=== PATIENT | male | born 1945 | race Caucasian/White ===

== ENCOUNTER 2017-04-25 13:21 | Emergency (ER) | payer OTHER ==
[~2017-04-25] VITALS: Ht 188 cm; Wt 165.6 kg
--- NOTE | ~2017-04-25 | CR106 ---
[facility] A Service of [facility] & [facility] RADIOLOGY TEXT RESULTS PATIENT: ALY RUELAS LOCATION: [facility] : 47 UNIT #: [id number] AGE: [address]: Bev Rivera MD SEX: M ORDER DR: [id number] [facility] [address] [place], [place] [address] [id number] E MR#: [id number] Acc #: [id number] NAME: ALY RUELAS : 1945 SEX: M STUDY DATE/TIME: 04/25/2017 15:28 UNIT: [facility] ROOM: STUDY DESCRIPTION: CR Femur 2 Views Lt Attending Physician: Bev Rivera M.D. Ordering Physician: Bev Rivera M.D. Primary Care Physician: [facility], [facility]. MEDICAL IMAGING REPORT This report is preliminary unless electronic signature is present EXAM Left femur. HISTORY Left femur pain after fall. FINDINGS AP and lateral views of the left femur were obtained. There is no fracture visible. There is anterior soft tissue swelling of the knee. IMPRESSION Anterior soft tissue swelling of the knee; otherwise normal. Dictated by... Fer Al M.D. THIS IS AN ELECTRONICALLY VERIFIED REPORT Fer Al M.D. at 04/26/2017 7:08 AM ECHO/dave TD: 04/25/2017 22:44 JOB #: [id number] MEDICAL IMAGING REPORT Page 1 of 1 COPY
--- NOTE | ~2017-04-25 | CR172 ---
[facility] A Service of [facility] & [facility] RADIOLOGY TEXT RESULTS PATIENT: ALY RUELAS LOCATION: [facility] : 47 UNIT #: [id number] AGE: [address]: Bev Rivera MD SEX: M ORDER DR: [id number] [facility] [address] [place], [place] [address] [id number] E MR#: [id number] Acc #: [id number] NAME: ALY RUELAS : 1945 SEX: M STUDY DATE/TIME: 04/25/2017 15:12 UNIT: [facility] ROOM: STUDY DESCRIPTION: CR Knee 3 Views Lt Attending Physician: Bev Rivera M.D. Ordering Physician: Bev Rivera M.D. Primary Care Physician: [facility] MEDICAL IMAGING REPORT This report is preliminary unless electronic signature is present EXAM Left knee INDICATION Left knee pain after fall today. FINDINGS 3-views of the left knee were obtained including AP, lateral and sunrise views. There is prominent anterior soft tissue swelling. There is no fracture. There is no significant joint space narrowing. IMPRESSION There seems to be anterior soft tissue swelling but there is no fracture identified. There are no significant degenerative changes. Dictated by... Fer Al M.D. THIS IS AN ELECTRONICALLY VERIFIED REPORT Fer Al M.D. at 04/26/2017 7:08 AM ECHO/angle TD: 04/25/2017 22:48 JOB #: [id number] MEDICAL IMAGING REPORT Page 1 of 1 COPY
--- NOTE | ~2017-04-25 | CR252 ---
[facility] A Service of [facility] & [facility] RADIOLOGY TEXT RESULTS PATIENT: ALY RUELAS LOCATION: [facility] : 47 UNIT #: [id number] AGE: [address]: Bev Rivera MD SEX: M ORDER DR: [id number] [facility] [address] [place], [place] [address] [id number] E MR#: [id number] Acc #: [id number] NAME: ALY RUELAS : 1945 SEX: M STUDY DATE/TIME: 04/25/2017 15:16 UNIT: [facility] ROOM: STUDY DESCRIPTION: CR Tibia and Fibula 2 Views Lt Attending Physician: Bev Rivera M.D. Ordering Physician: Bev Rivera M.D. Primary Care Physician: [facility], [facility]. MEDICAL IMAGING REPORT This report is preliminary unless electronic signature is present EXAM Left tibia and fibula INDICATIONS Pain after falling on concrete today. FINDINGS AP and lateral views of the tibia and fibula were obtained. No fractures are identified. The bones are normal. There is no foreign body. IMPRESSION No fractures visible. There may be some anterior soft tissue swelling. Dictated by... Fer Al M.D. THIS IS AN ELECTRONICALLY VERIFIED REPORT Fer Al M.D. at 04/26/2017 7:08 AM ECHO/cristin TD: 04/25/2017 22:52 JOB #: [id number] MEDICAL IMAGING REPORT Page 1 of 1 COPY
[~2017-04-25 13:21] MED LIST: ACETAMINOPHEN PO; ALBUTEROL MININEB NEB; ALPRAZOLAM PO; AMLODIPINE BESY10 MG PO; BUMEX2 MG PO; COMBIVENT MININEB; COMBIVENT MININEB IH; CORDARONE200 M1 PO; FLOMAX0.4 M1 PO; FOSINOPRIL PO; FOSINOPRIL SODI20 MG PO; FUROSEMIDE40 MG PO; GABAPENTIN400 M2 PO; GABAPENTIN400 MG PO; GABAPENTIN600 MG PO; GLUCOPHAGE XR500 MG PO; GLUCOTROL PO; GLUCOTROL XL10 MG PO; GLUCOTROL10 MG PO; KCL PO; KLOR-CON PO; LANTUS100 U/M1 IM; LASIX PO; LEVAQUIN750 MG PO; LEXAPRO PO; METFORMIN HCL500 M1 PO; METOPROLOL TAR25 MG PO; NORVASC PO; NORVASC10 MG PO; PANTOPRAZOLE SO40 MG PO; PERCOCET 5-3251 TAB PO; PRAVACHOL20 MG PO; PRAVASTATIN SOD20 MG PO; PREDNISONE10 MG PO; PROAIR HFA8.5 GM IH; SPIRIVA18 MCG INH; SYMBICORT 16010.2 GM; SYMBICORT 16010.2 GM IH; SYMBICORT80 INH; XARELTO20 MG PO; XOPENEX1.25 MG/3 IH; ZITHROMAX PO
[2017-04-25 15:09] LABS: BASOPHIL% 0.4 % (0-2.5); EOSINOPHIL% 0.5 % (0.0-7.0); HEMOGLOBIN 12.4 gm/dL (13.0-16.0); LYMPHOCYTE# 0.7 X10e3 (1.0-3.5); MEAN CELL VOLUME 89.1 FL (83-96); MEAN CORPUSCULAR HEMOGLOBIN 29.9 PG (28-34); MEAN CORPUSCULAR HGB CONC 33.5 g/dL (30-36); MEAN PLATELET VOLUME 7.4 FL (6.5-11.5); MONOCYTE# 0.9 X10e3 (0-1.0); MONOCYTE% 10.9 % (3.0-12.0); NEUTROPHIL# 6.9 X10e3 (1.5-7.1); NEUTROPHIL% 80.2 % (40-75); PLATELET COUNT 222 X10e3 (140-420); RED BLOOD COUNT 4.15 X10e (3.90-5.60); RED CELL DISTRIBUTION WIDTH 14.2 % (11.0-15.5); WHITE BLOOD COUNT 8.6 X10e3 (4.0-10.5)
[2017-04-25 15:11] LABS: DIFF IND NO
[2017-04-25 15:27] LABS: INR 1.3; PARTIAL THROMBOPLASTIN TIME 35.5 SECONDS (23.5-31.3)
[2017-04-25 16:01] LABS: ALBUMIN SERUM 3.6 g/dL (3.5-5.0); BILIRUBIN, DIRECT 0.2 mg/dL (0.0-0.2); BILIRUBIN,INDIRECT 0.7 mg/dL (0.0-0.9); BILIRUBIN,TOTAL 0.9 mg/dL (0.2-2.0); BUN/CREATININE RATIO 19.09; CALCIUM SERUM 8.6 mg/dL (8.4-10.2); CREATININE SERUM 1.1 mg/dL (0.6-1.4); GLOM FILT RATE Estimated 68.1 mL/min (>60); POTASSIUM 4.4 mmol/L (3.5-5.1); PROTEIN TOTAL SERUM 6.5 g/dL (6.0-8.3)
== END 2017-04-25 19:19 | disposition home or self-care (01) ==
LOC: CED 13:21
PROVIDERS: Emergency Medicine
DX: S80.02XA Contusion of left knee, initial encounter (principal); I11.0 Hypertensive heart disease with heart failure; I50.9 Heart failure, unspecified; I48.91 Unspecified atrial fibrillation; E78.5 Hyperlipidemia, unspecified; E11.9 Type 2 diabetes mellitus without complications; I73.9 Peripheral vascular disease, unspecified; Z89.422 Acquired absence of other left toe(s); Z89.511 Acquired absence of right leg below knee; Z88.2 Allergy status to sulfonamides; Z79.899 Other long term (current) drug therapy; Z79.84 Long term (current) use of oral hypoglycemic drugs; W18.30XA Fall on same level, unspecified, initial encounter; Y92.009 Unspecified place in unspecified non-institutional (private) residence as the place of occurrence of the external cause
CPT/HCPCS: 36415; 73552; 73562; 73590; 80048; 80076; 83605; 85025; 85610; 85730; 99284

== ENCOUNTER 2017-05-03 10:54 | Inpatient (IN) | payer OTHER ==
[~2017-05-03] VITALS: Ht 188 cm; Wt 157.4 kg
--- NOTE | ~2017-05-03 | CO ---
Unit #: [id number] #: [id number] Patient: ALY LEBRON [id number] [address] [address] [id number] I MR#: [id number] NAME: ALY LEBRON ROOM: 561 Age: 71 Sex: M Admission Date: 05/03/2017 : 1945 Attending Physician: So Judd M.D. Primary Care Physician: [facility]. Requesting Physician: So Judd M.D. Consultation Date: 05/04/2017 CONSULTATION REPORT REASON FOR CONSULTATION Lower extremity cellulitis. HISTORY OF PRESENT ILLNESS Mr. Lebron is a 71-year-old gentleman with a past medical history significant for AFib, chronic anticoagulation with Xarelto, hypertension, hyperlipidemia, right bundle branch block, diabetes, COPD, chronic respiratory failure, obstructive sleep apnea, chronic lymphedema who presented in the emergency room with continue complaints of left lower leg swelling and blisters. He stated that had fallen this April on 04/24/2017 and was seen in the emergency room. Imaging of left knee x-ray and fibular x-ray were all negative. He was discharged on p.o. Keflex. He has been taking the Keflex but felt like his erythema and blisters were developing even more on his left lower extremity for which he was admitted. He complains of some generalized tenderness. He denies any fevers, chills, difficulty in breathing, cough, pain, vomiting or diarrhea. He has been started on vancomycin and Zosyn. He had an ultrasound of his lower extremity, which was negative for any deep venous thrombosis. He is currently afebrile with no leukocytosis and we are being consulted for further antibiotic recommendations. PAST MEDICAL HISTORY 1. Previous admission here at [facility] for chronic respiratory failure and COPD. 2. Chronic respiratory failure. 3. Obstructive sleep apnea. He is on the CPAP. 4. Atrial fibrillation. 5. Hypertension. 6. Hyperlipidemia. 7. Right bundle branch block. 8. Diabetes. 9. Chronic lymphedema. 10. Status post right BKA. PAST SURGICAL HISTORY 1. Cardiac catheterization. 2. EGD. 3. Toe amputation. 4. Right below the knee amputation. 5. Hernia repair. SOCIAL HISTORY The patient is a former smoker. Walks with a cane and denies any alcohol abuse or illicit drug use. Unit #: [id number] #: [id number] Patient: ALY LEBRON FAMILY HISTORY Noncontributory. ALLERGIES Sulfa. CURRENT MEDICATIONS REVIEWED Patient is currently on Zosyn and vancomycin. REVIEW OF SYSTEMS All negative except for those stated in the HPI. DIAGNOSTIC STUDIES IMAGING STUDIES: Negative exam of left lower extremity DVT, negative pending KAREEM. LABORATORY DATA: Glucose is 155, BUN 19, creatinine 1.3, sodium 139, potassium 4.5. Hematology - white count is 8.9, hemoglobin 11.3, white count is 10.5, hemoglobin 11.3, platelets are 371. Blood culture are no growth today at 24 hours. ASSESSMENT 71-year-old gentleman with history of diabetes. Returns for reoccurring left lower extremity cellulitis and has failed outpatient p.o. antibiotic therapy. At this point will continue Zosyn and will check vancomycin to Zyvox for better skin penetration. Will followup on KAREEM. Patient may need vascular consult depending on KAREEM results. Wound care has been consulted. Further recommendations will come Dr. Kirk. He will see patient later today. Dictated by... Tracee Boland APRN for Essie Marie/nitin TD: 05/05/2017 10:03 JOB #: [id number] CONSULTATION REPORT Page 1 of 1 X X CONSULTATION REPORT
--- NOTE | ~2017-05-03 | US85 ---
[facility] A Service of [facility] & [facility] RADIOLOGY TEXT RESULTS PATIENT: ALY RUELAS LOCATION: [place] [address] : [birth year] UNIT #: [id number] AGE: [address]: Kalina Florence MD SEX: M ORDER DR: [id number] [facility] [address] [place], [place] [address] [id number] I MR#: [id number] Acc #: [id number] NAME: ALY RUELAS : 1945 SEX: M STUDY DATE/TIME: 05/03/2017 14:13 UNIT: [facility] ROOM: [address] STUDY DESCRIPTION: US LE Veins Unilat or Ltd Stdy Attending Physician: Kalina Florence M.D. Ordering Physician: David Harvey M.D. Primary Care Physician: [facility] MEDICAL IMAGING REPORT This report is preliminary unless electronic signature is present EXAM Left lower extremity venous duplex 05/03/2017 HISTORY Left lower extremity edema and pain for 9 days. Evaluate for deep vein thrombosis. TECHNIQUE Venous ultrasound examination of the left lower extremity was performed using grayscale, spectral Doppler and color flow Doppler imaging. FINDINGS The examination is negative. There is no evidence of left lower extremity deep venous thrombus from the groin to the lower calf. Visualized greater saphenous vein is also patent. IMPRESSION Negative examination. No evidence of left lower extremity deep venous thrombosis. Dictated by... Butch Jarrett M.D. THIS IS AN ELECTRONICALLY VERIFIED REPORT Butch Jarrett M.D. at 05/04/2017 7:28 AM KRT/to TD: 05/03/2017 18:05 JOB #: [id number] MEDICAL IMAGING REPORT Page 1 of 1 COPY
--- NOTE | ~2017-05-03 | CO ---
Unit #: [id number] #: [id number] Patient: ALY RUELAS [id number] [address] [place], [place] [address] [id number] I MR#: [id number] NAME: ALY RUELAS ROOM: 561 Age: 72 Sex: M Admission Date: 05/03/2017 : 1945 Attending Physician: So Judd M.D. Primary Care Physician: [facility]. CONSULTATION REPORT CHIEF COMPLAINT Left lower extremity pain. REASON FOR CONSULTATION Evaluate for arterial versus venous disease. HISTORY OF PRESENT ILLNESS This is a 71-year-old gentleman with multiple medical problems including atrial fibrillation, on Xarelto; hypertension; hyperlipidemia; right bundle-branch block; diabetes; COPD; chronic respiratory failure; obstructive sleep apnea; left lower extremity lymphedema; as well as status post right below-knee amputation in 10/2009; and morbid obesity. He states that he initially fell back on 04/24 and was seen in ER the next day with a script to his left knee. He had plain film imaging of his left lower extremity, which did not demonstrate any fractures. He was discharged on Keflex, but returned because he felt like his leg was getting more red and more painful. He also noticed development of some blisters on his left medial thigh. He denies any fever or chills. He has no chest pain or shortness of breath. Per report, the patient has had left lower extremity venous duplex, which was negative for DVT. He also had segmental ABIs that demonstrated a left KAREEM of 0.83. PAST MEDICAL HISTORY Includes as described above. PAST SURGICAL HISTORY Includes cardiac catheterization in 10/2013, and a right below-knee amputation in 10/[address] Schneider. SOCIAL HISTORY He is a former smoker, walks with a cane and his prosthetic. Reports occasional alcohol use. FAMILY HISTORY Dad of an [place] at age 51. Denies any known bleeding disorders, clotting disorders, or aneurysms. ALLERGIES Sulfa. MEDICATIONS Include Tylenol, Advair, Norvasc, Flomax, lisinopril, Lasix, gabapentin, Unit #: [id number] #: [id number] Patient: ALY RUELAS potassium, metformin, ProAir, Spiriva, Xarelto, and ketotifen eye drops twice daily. REVIEW OF SYSTEMS As described above in the HPI, in addition; CONSTITUTIONAL: No fevers or chills. HEENT: Denies any ear pain or tinnitus. RESPIRATIONS: Positive for shortness of breath. Negative for cough. CARDIOVASCULAR: Denies any chest pain or palpitations. GI: Denies any nausea, vomiting, or diarrhea. : Denies any hematuria. HEME: Denies any easy bruising. ENDOCRINE: Denies any excessive thirst or hunger. MUSCULOSKELETAL: Denies any back pain or neck pain. INTEGUMENTARY: Positive for pruritus and blistering of the skin as described above in the HPI. PHYSICAL EXAMINATION VITAL SIGNS: Temperature is 97.5, pulse is 55, blood pressure is 150/62, respirations 17, and 96% on 2 L. CONSTITUTIONAL: Well-appearing, obese. HEENT: Eyes, no scleral icterus. NECK: No JVD. No carotid bruit. LYMPHATICS: No lymphadenopathy in neck or groins. CARDIOVASCULAR: Irregularly irregular, pulse exam; 2+ femoral pulses, multiphasic DP/PT signals on the left. RESPIRATIONS: Nonlabored respirations. GI: Soft. Nontender. Nondistended. Obese. SKIN: Erythema along the anterior aspect of the left lower leg, some blistering of the medial thigh, minimal drainage, there is no erythema. PSYCH: Normal mood and affect. LABORATORY STUDIES White count 10.5, hematocrit 33.3, and platelets 371. Sodium 140, potassium 5.3, chloride 104, CO2 is 27, BUN 18, creatinine 1.3, and glucose 136. Estimated GFR is 56. Urine culture is negative. Right KAREEM is 0.83 of the DP, 0.80 of PT, toe pressure is 49, toe index of 0.32, with multiphasic waveforms. ASSESSMENT AND PLAN This 71-year-old gentleman with left lower extremity lymphedema and concomitant cellulitis status post fall. My recommendation is that he continue to have wound care to his blistering, although it does not appear that severe. He does have compression stockings at home. He should elevate his leg and be aggressive with compression therapy, and I have placed an order for an Antoine wrap of his foot all the way up to his thigh. In addition, he should likely have outpatient followup with Dr. Tylor Garcia for evaluation of venous insufficiency. I do not believe that it is mild arterial insufficiency as demonstrated by his ABIs of 0.83, is a primary etiology for his left lower extremity pain or physical exam. He should be maintained on antibiotics to treat the cellulitis, as it is a common sequelae of lymphedema. If he is not seen by lymphedema clinic, he should be referred to one for aggressive manual decompression and maintenance therapy of his swelling. Dictated by... Adrian Knight M.D. Unit #: [id number] #: [id number] Patient: ALY RUELAS LACY/connie TD: 05/07/2017 02:22 JOB #: [id number] CONSULTATION REPORT Page 1 of 1 X X CONSULTATION REPORT
--- NOTE | ~2017-05-03 | EKG ---
PATIENT: ALY RUELAS UNIT #: [id number] Ventricular Rate: 61 BPM Atrial Rate: 60 BPM QRS Duration: 162 ms Q-T Interval: 430 ms QTC Calculation(Bezet): 432 ms Calculated R Conover: -2 degrees Calculated T Conover: 15 degrees Diagnosis Line: Atrial fibrillation Diagnosis Line: Right bundle branch block Diagnosis Line: Abnormal ECG Diagnosis Line: When compared with ECG of 20-MAY-2014 19:49, Diagnosis Line: Questionable change in QRS axis Diagnosis Line: Confirmed by ERIBERTO TEJADA MD ([id number]) on Diagnosis Line: 05/03/2017 10:53:19 PM INTERPRETING MD: KM
--- NOTE | ~2017-05-03 | DS ---
Unit #: [id number] #: [id number] Patient: ALY RUELAS [id number] [address] [address] [id number] I MR#: [id number] NAME: ALY RUELAS ROOM: [facility] Age: 72 Sex: M Admission Date: 05/03/2017 : 1945 Discharge Date: Attending Physician: Monisha Conley M.D. Primary Care Physician: [facility], [facility]. DISCHARGE SUMMARY ADDENDUM This is an addendum to a previously dictated transfer of care note done by Dr. Judd on 05/07/2017. ADDITIONAL DISCHARGE DIAGNOSES 1. Hyperkalemia. 2. Benign prostatic hypertrophy. HOSPITAL COURSE Since last dictation, the patient has clinically been doing well. His creatinine has now trended down to 1.4 and can be monitored closely at rehab. This morning his potassium is 5.5. I have discontinued his Klor-Con and I am awaiting a repeat potassium level. Assuming this is improved, I think patient can safely be discharged to subacute rehab later today. He has had no evidence of fever and leukocytosis continues to improve. DISCHARGE CONDITION Stable. DISCHARGE STATUS Discharge to subacute rehab. DISCHARGE MEDICATIONS 1. ProAir HFA two puffs every 6 hours p.r.n. for shortness of air. 2. Advair HFA 115/21 mcg two puffs b.i.d. 3. Flomax 0.4 mg daily. 4. Tylenol 500 mg p.o. t.i.d. p.r.n. for pain. 5. Zyvox 600 mg p.o. b.i.d. to stop after dose on 05/13/2017. 6. Clobetasol ointment 0.05% applied topically b.i.d. to lower extremities with mixed Bactroban. 7. Spiriva 18 mcg on puff daily. 8. Bactroban ointment applied topically b.i.d. with clobetasol cream to lower extremities, from the ankles to the groin. 9. Xarelto 20 mg daily. 10. Gabapentin 600 mg t.i.d. 11. Nystatin cream topically b.i.d. to left thigh. 12. Xanax 0.5 mg daily. 13. Norvasc 10 mg daily. 14. Zatidor one drop to both eyes b.i.d. p.r.n. for itchy eyes. 15. Lasix 40 mg daily. 16. Fosinopril 40 mg daily. 17. Daily multivitamin. Unit #: [id number] #: [id number] Patient: ALY RUELAS 18. Melatonin 1 mg at bedtime. 19. Oxygen at 2 L per nasal cannula continuously. DISCHARGE INSTRUCTIONS 1. Patient instructed to follow a heart healthy diet. 2. He is to increase his activity as tolerated, to wear his oxygen at all times. FOLLOWUP The patient will followup with his primary care provider, the doctor at [facility], upon discharge from subacute rehab. 1. 1. Dictated by... Monisha Conley M.D. VIC/nitin TD: 05/08/2017 13:11 JOB #: [id number] DISCHARGE SUMMARY Page 1 of 1 X Monisha Conley MD DISCHARGE SUMMARY
--- NOTE | ~2017-05-03 | BMI ---
[facility] Nutrition Therapy DATE: 05/04/17 Patient: ALY RUELAS Physician: FREDRICK Address: [address] [place] [address] Room/Bed: [address] [place] [address], Zip: [place] [address] Admit Date: 05/03/17 Date of : [birth year] Height: 6 2 Weight: 350 158.75 HIGH BMI NOTE: DX: 71 Y.O. MALE ADMITTED FOR FEVER ANTHROPOMETRICS: 6'2", WT: 349# (158.6 KG), BMI: 44.8 DIET: CONSISTENT CARBOHYDRATE + HEALTHY HEART RECOMMENDATIONS: 1. RECOMMEND TO CONTINUE CURRENT DIET ORDER ABOVE TO PROMOTE GRADUAL WEIGHT LOSS TOWARDS HEALTHY BMI (19.0-25.0) OR +/-10%IBW RD WILL F/U PER PROTOCOL Respectfully, JOAO DOMÍNGUEZ MS, RD, LD Food and Nutritional Services [facility] cc: client file
--- NOTE | ~2017-05-03 | A ---
[facility] Nutrition Therapy DATE: 05/05/17 Patient: ALY RUELAS Physician: FREDRICK Address: [address] [place] [address] Room/Bed: [address] [place] [address], Zip: [place] [address] Admit Date: 05/03/17 Date of : [birth year] Height: 6 2 Weight: 358 162.4 NUTRITIONAL ASSESSMENT: REASON: CONSULT RE: DIET EDUCATION RD PROVIDED WRITTEN AND VERBAL CC + HH + WEIGHT LOSS TIPS + 2000 KCAL DIET RESTRICTION DIET EDUCATION. PT PROVIDED 24 HOUR FOOD-RECALL FOR RD. PT WILLING TO ADD MORE FRUITS AND VEGETABLES TO HIS DAILY MEAL SCHEDULE. PT DEMONSTRATED UNDERSTANDING OF THE TOPIC. EXPECT MILD COMPLIANCE WITH RECOMMENDED DIET AT HOME POST DISCHARGE. PT REPORTED NO DIET QUESTIONS AT THIS TIME. RD TO REMAIN AVAILABLE UPON REQUEST. RECOMMENDATIONS: 1. ENCOURAGE COMPLIANCE OF DIET ORDER=CC+HH DIET 2. RE-CONSULT RD IF FURTHER DIET EDUCATION REQUESTED RD WILL F/U PER PROTOCOL Respectfully, JOAO DOMÍNGUEZ MS, RD, LD Food and Nutritional Services [facility] cc: client file
--- NOTE | ~2017-05-03 | DS ---
Unit #: [id number] #: [id number] Patient: ALY RUELAS [id number] [address] [address] [id number] I MR#: [id number] NAME: ALY RUELAS ROOM: 561 Age: 72 Sex: M Admission Date: 05/03/2017 : 1945 Discharge Date: 05/10/2017 Attending Physician: Monisha Conley M.D. Primary Care Physician: [facility]. DISCHARGE SUMMARY ADDENDUM ADDITIONAL DISCHARGE DIAGNOSES 1. Tenia infection of right leg. 2. Recurrent hyperkalemia, likely MENDEL inhibitor induced. HOSPITAL COURSE The patient has remained in the hospital while awaiting precertification for rehab. He has had recurrent hyperkalemia despite being off potassium supplementation and thus I am going to discontinue his MENDEL inhibitor and change him to hydralazine. Blood pressure will need to be monitored closely at rehab with adjustments as necessary. The patient's bacterial cellulitis appears significantly improved, but he continues to have what appears to be a yeast and/or fungal infection. I am going to place him on Diflucan and again this can be monitored closely at rehab. Otherwise the patient is clinically stable and will be discharged when precertification is available. DISCHARGE CONDITION Stable. DISCHARGE DISPOSITION Discharge to rehab. DISCHARGE MEDICATIONS As previously dictated, with three exceptions: Discontinuation of lisinopril, initiation of hydralazine 50 mg b.i.d. and Diflucan 200 mg p.o. daily to stop after dose on 05/19/2017. Dictated by... Monisha Conley M.D. VIC/tess TD: 05/10/2017 09:49 JOB #: [id number] Unit #: [id number] #: [id number] Patient: ALY RUELAS DISCHARGE SUMMARY Page 1 of 1 X Monisha Conley MD DISCHARGE SUMMARY
--- NOTE | ~2017-05-03 | TOC ---
Unit #: [id number] #: [id number] Patient: ALY RUELAS [id number] [address] [address] [id number] I MR#: [id number] NAME: ALY RUELAS ROOM: 561 Age: 72 Sex: M Admission Date: 05/03/2017 : 1945 Attending Physician: So Judd M.D. Primary Care Physician: [facility]. TRANSFER OF CARE SUMMARY DISCHARGE DIAGNOSES 1. Left lower extremity cellulitis, failed outpatient treatment. 2. Atrial fibrillation status post cardioversion, on Xarelto. 3. Obstructive sleep apnea, on continuous positive airway pressure. 4. Chronic respiratory failure, on 2 liters oxygen. 5. Chronic obstructive pulmonary disease, stable. 6. Hypertension. 7. Hyperlipidemia. 8. Right bundle branch block. 9. Diabetes. 10. Chronic lymphedema. 11. Acute kidney injury. 12. Anemia, acute on chronic, likely iron deficiency. 13. Hypocalcemia. 14. Moderate protein malnutrition. 15. Morbid obesity, body mass index of 44. CONSULTATIONS Dr. Kirk. PROCEDURES None. DIAGNOSTIC TESTING LAB DATA: Wound cultures are growing normal respiratory doris. Creatinine 1.6. WBC 14.3, hemoglobin 10.9, platelets 458. IMAGING: Ultrasound of the extremities negative for DVT. HOSPITALIZATION COURSE Left leg cellulitis. Patient was seen by infectious disease. Currently the patient is on IV Zyvox. The patient needs p.o. Zyvox for 10 more days. The patient insists that he wants to go to rehab. I am going to ask PT/OT eval and case management for rehab. Acute kidney injury, likely from diuretics, which he got for leg swelling IV. Currently he is on p.o. Lasix. Monitor. Creatinine is stable. Atrial fibrillation. Currently rate controlled on Xarelto. Continue. Anemia, likely iron deficiency. No active bleeding. Wait for rehab. Unit #: [id number] #: [id number] Patient: ALY RUELAS Dictated by... Essie Fenton/ruby TD: 05/07/2017 15:34 JOB #: [id number] TRANSFER OF CARE SUMMARY Page 1 of 1 X So Judd MD TRANSFER OF CARE SUMMARY
--- NOTE | ~2017-05-03 | CR172 ---
[facility] A Service of [facility] RADIOLOGY TEXT RESULTS PATIENT: ALY RUELAS LOCATION: B 561-01 : [birth year] UNIT #: [id number] AGE: [address]: So Judd MD SEX: M ORDER DR: [id number] [facility] [address] [facility]. [place], [place] [address] [id number] MR#: [id number] Acc #: [id number] NAME: ALY RUELAS : 1945 SEX: M STUDY DATE/TIME: 05/05/2017 14:43 UNIT: [facility] ROOM: [facility] STUDY DESCRIPTION: CR Knee 3 Views Lt Attending Physician: So Judd M.D. Ordering Physician: So Judd M.D. Primary Care Physician: [facility] MEDICAL IMAGING REPORT This report is preliminary unless electronic signature is present EXAM Left knee series 05/05/2017 HISTORY Fluid buildup. Diabetic, leg pain, bruising, swelling 10 days. Fell. TECHNIQUE/COMPARISON AP lateral and sunrise views of the left knee compared to 04/25/2017. FINDINGS No traumatic fracture or mal alignment. Moderate narrowing patellofemoral joint space compartment. No joint effusion. Prominent soft tissue swelling in the anterior soft tissues superficial to the patella and along the anterior proximal foreleg. Prepatellar soft tissues currently measure up to approximately 3.1 cm in thickness on the lateral view, previously 3.6 cm. There are coarse linear densities in the subcutaneous fat of the visualized by and foreleg. These could represent chronic change to some degree or subcutaneous edema. Weight should be given clinical assessment. I see no soft tissue defect, subcutaneous air or radiodense foreign body. Dictated by... Vu Hull M.D. THIS IS AN ELECTRONICALLY VERIFIED REPORT Vu Hull M.D. at 05/06/2017 9:44 PM DEQUANK/diogo TD: 05/05/2017 22:01 JOB #: [id number] MEDICAL IMAGING REPORT [facility] A Service of [facility] RADIOLOGY TEXT RESULTS PATIENT: ALY RUELAS LOCATION: C5B 561-01 : [birth year] UNIT #: [id number] AGE: [address]: So Judd MD SEX: M ORDER DR: Page 1 of 1 COPY
--- NOTE | ~2017-05-03 | US136 ---
[facility] A Service of [facility] RADIOLOGY TEXT RESULTS PATIENT: ALY RUELAS LOCATION: [facility] 561 : [birth year] UNIT #: [id number] AGE: [address]: So Judd MD SEX: M ORDER DR: [id number] [place] [id number] [facility]. [place], [place] [address] [id number] MR#: [id number] Acc #: [id number] NAME: ALY RUELAS : 1945 SEX: M STUDY DATE/TIME: 05/04/2017 18:45 UNIT: [facility] ROOM: [facility] STUDY DESCRIPTION: US U/L Ext Art Study Ltd Bil Attending Physician: So Judd M.D. Ordering Physician: Kalina Florence M.D. Primary Care Physician: [facility] MEDICAL IMAGING REPORT This report is preliminary unless electronic signature is present EXAM Bilateral ankle-brachial indices INDICATIONS Claudication, left lower extremity pain for several days. Patient has a history of right below the knee amputation. TECHNIQUE Sequential pressures were obtained through the left lower extremity FINDINGS The patient's ankle-brachial indices on the left are diminished measuring 0.83 at posterior tibial artery on the left and 0.80 at the dorsalis pedis artery on the left. The toe-brachial index is also diminished, measuring 0.32. IMPRESSION Diminished left sided ankle-brachial indices likely reflecting multiple levels of arterial disease. Patient's toe-brachial index is also diminished which may reflect small vessel disease, inflow disease or a combination of both. Dictated by... Tabitha Tinoco M.D. THIS IS AN ELECTRONICALLY VERIFIED REPORT Tabitha Tinoco M.D. at 05/05/2017 4:59 PM AFF/to TD: 05/04/2017 22:46 JOB #: [id number] MEDICAL IMAGING REPORT [facility] A Service [facility] RADIOLOGY TEXT RESULTS PATIENT: ALY RUELAS LOCATION: [facility] [address] : [birth year] UNIT #: [id number] AGE: [address]: So Judd MD SEX: M ORDER DR: Page 1 of 1 COPY
--- NOTE | ~2017-05-03 | HP ---
Unit #: [id number] #: [id number] Patient: ALY RUELAS [id number] [address] [address] [id number] MR#: [id number] NAME: ALY RUELAS ROOM: Age: 71 Sex: M Admission Date: 05/03/2017 : 1945 Attending Physician: Meng Gray Primary Care Physician: [facility] HISTORY AND PHYSICAL CHIEF COMPLAINT Left lower extremity HPI. HISTORY OF PRESENT ILLNESS The patient is a 71-year-old male with past medical history of atrial fibrillation, chronic anticoagulation with Xarelto, hypertension, hyperlipidemia, right bundle branch block, diabetes, COPD, chronic respiratory failure, obstructive sleep apnea, chronic lymphedema who presented to the emergency department for evaluation of the above. The patient states that he fell on April 24, 2017. He was seen in the emergency department on April 25. He scraped his left knee. He had some imaging studies including left knee x-ray, left tibia/fibula x-ray, as well as, left femur x-ray that were negative. He was discharged home on Keflex which he has been taking as prescribed. He states that the leg has gotten increasingly red and warm. He noted some blisters developing a few days ago. He denies any fever. No cough or cold symptoms. No chest pain or difficulty breathing. No vomiting or diarrhea. In the emergency department, a left lower extremity venous Doppler was done and negative for DVT. He was given vancomycin as well as 10 mg of Spencer. He is being admitted to [facility] for evaluation and further treatment. PAST MEDICAL HISTORY 1. Admission to [facility], February 09, 2014, for acute on chronic respiratory failure and COPD exacerbation. 2. COPD, followed by Dr. Stewart. 3. Chronic respiratory failure on 2 L of oxygen per nasal cannula at night. 4. Obstructive sleep apnea on CPAP. 5. Atrial fibrillation, status post cardioversion, maintained on chronic anticoagulation with Xarelto. 6. Hypertension. 7. Hyperlipidemia. 8. Right bundle branch block. 9. Diabetes. 10. Chronic lymphedema. PAST SURGICAL HISTORY 1. Cardiac catheterization, October 23, 2013, showed angiographically normal coronary artery disease. 2. EGD and colonoscopy. 3. Toe amputation. Unit #: [id number] #: [id number] Patient: ALY RUELAS 4. Right [id number] amputation. 5. Hernia repair. SOCIAL HISTORY The patient is a former smoker. He walks with a cane. He reports occasional alcohol use. FAMILY HISTORY Notable for his dad dying of a myocardial infarction at the age of 51. ALLERGIES Sulfa. HOME MEDICATIONS 1. Tylenol 500 t.i.d. p.r.n. 2. Advair two puffs inhaled twice daily. 3. Norvasc 10 mg daily. 4. Flomax 0.4 mg daily. 5. Lisinopril 40 mg daily. 6. Lasix 40 mg daily. 7. Gabapentin 600 mg t.i.d. 8. Potassium 10 mEq daily. 9. Metformin 500 mg t.i.d. 10. ProAir two puffs q.6 hours p.r.n. 11. Spiriva daily. 12. Xarelto 20 mg daily. 13. Ketotifen eye drops twice daily. REVIEW OF SYSTEMS A complete review of systems is negative except as indicated in the HPI. The patient states that his blood sugars are typically around 130. DIAGNOSTIC STUDIES LABORATORY: Complete blood count notable for hemoglobin and hematocrit of 10.9 and 33.3 respectively. Troponin is less than 0.05. INR is 1.5. Basic metabolic panel notable for glucose of 177, BUN and creatinine 21 and 1.3 respectively. IMAGING: Left lower extremity venous Doppler is negative for DVT. Left knee x-ray shows anterior soft tissue swelling but no fracture. Left tibia/fibula x-rays shows no fracture. Left femur x-ray shows anterior soft tissue swelling of the knee but otherwise normal. (Those imaging studies are from April 25). PHYSICAL EXAMINATION VITAL SIGNS: Temperature is 98.6, pulse 80, respirations 20, blood pressure 136/69, oxygen saturation 94% on room air. GENERAL: The patient is a male who is awake and alert in no acute distress. HEENT: The head is atraumatic. Mucous membranes are moist. NECK: Supple. Trachea is midline. CARDIOVASCULAR: Irregular. LUNGS: Demonstrate decreased breath sounds. Breathing is not labored. ABDOMEN: Obese, soft, nontender with bowel sounds present in all four quadrants. Unit #: [id number] #: [id number] Patient: ALY RUELAS EXTREMITIES: The right lower extremity has been previously amputated. The left lower extremity shows a few abrasions on the knee with surrounding erythema, warmth, and tenderness to palpation with associated streaking involving the thigh and leg. I am unable to palpate a pulse. NEUROLOGIC: The patient is awake and alert. He follows commands. PSYCHIATRIC: Mood and affect are normal. The patient is cooperative. SKIN: Demonstrates the previously described abnormalities. ASSESSMENT The patient is a 71-year-old male with: 1. Left lower extremity cellulitis that has failed outpatient treatment with Keflex. 2. Atrial fibrillation, status post cardioversion, maintained on chronic anticoagulation with Xarelto. 3. Hypertension. 4. Hyperlipidemia. 5. Right bundle branch block. 6. Diabetes. 7. Chronic obstructive pulmonary disease. 8. Chronic respiratory failure on 2 L of oxygen per nasal cannula at night. 9. Obstructive sleep apnea on CPAP. 10. Chronic lymphedema. 11. Morbid obesity with a body mass index of 44. 12. Former smoker. PLAN 1. Admit to low level monitor. 2. Healthy heart, constant carb diet. 3. Blood cultures x2. 4. Wound culture and sensitivity. 5. Vancomycin IV and Zosyn IV pending further workup. 6. Check ABIs due to unable to palpate pulses. 7. Check CPK. 8. Check EKG. 9. Hemoglobin A1c. 10. Low-dose sliding scale insulin with Accu-Cheks. 11. Supplemental oxygen. 12. P.r.n. DuoNeb. 13. CPAP at home settings. 14. Repeat labs in the morning. 15. Additional workup and consultants based on above. Dictated by Essie Lam/malvin TD: 05/03/2017 17:15 JOB #: [id number] Unit #: [id number] #: [id number] Patient: ALY RUELAS HISTORY AND PHYSICAL Page 1 of 1 X Kalina Flroence MD HISTORY AND PHYSICAL
[2017-05-03 12:57] LABS: BASOPHIL% 0.3 % (0-2.5); EOSINOPHIL# 0.2 X10e3 (0-0.7); EOSINOPHIL% 1.8 % (0.0-7.0); HEMATOCRIT 33.3 % (38.0-50.0); HEMOGLOBIN 10.9 gm/dL (13.0-16.0); LYMPHOCYTE# 0.6 X10e3 (1.0-3.5); LYMPHOCYTE% 6.4 % (17.0-45.0); MEAN CELL VOLUME 89.6 FL (83-96); MEAN CORPUSCULAR HEMOGLOBIN 29.4 PG (28-34); MEAN CORPUSCULAR HGB CONC 32.9 g/dL (30-36); MEAN PLATELET VOLUME 7.3 FL (6.5-11.5); MONOCYTE% 11.1 % (3.0-12.0); NEUTROPHIL# 7.2 X10e3 (1.5-7.1); NEUTROPHIL% 80.4 % (40-75); PLATELET COUNT 376 X10e3 (140-420); RED BLOOD COUNT 3.72 X10e (3.90-5.60); RED CELL DISTRIBUTION WIDTH 14.3 % (11.0-15.5)
[2017-05-03 13:01] LABS: DIFF IND NO
[2017-05-03 13:06] LABS: POC - CKMB 3.2 ng/mL (0.0-7.9); POC - TROPONIN <0.05 ng/mL (<=0.05)
[2017-05-03 13:11] LABS: INR 1.5; PARTIAL THROMBOPLASTIN TIME 46.4 SECONDS (23.5-31.3); PROTHROMBIN TIME (PATIENT) 16.5 SECONDS (10.0-11.7)
[2017-05-03 13:49] LABS: BUN/CREATININE RATIO 16.15; CALCIUM SERUM 8.6 mg/dL (8.4-10.2); CREATININE SERUM 1.3 mg/dL (0.6-1.4); GLOM FILT RATE Estimated 55.7 mL/min (>60); POTASSIUM 4.4 mmol/L (3.5-5.1)
[2017-05-03] MEDS ORDERED: PAIN RELIEVER500 M6 PO (16:26)
[2017-05-03] MEDS ORDERED: ADVAIR HFA 115-12 GM INH (16:26)
[2017-05-03] MEDS ORDERED: GABAPENTIN600 MG PO (16:27)
[2017-05-03] MEDS ORDERED: NORVASC10 MG PO (16:27)
[2017-05-03] MEDS ORDERED: LASIX20 MG PO (16:27)
[2017-05-03] MEDS ORDERED: FOSINOPRIL SODI40 M1 PO (16:27)
[2017-05-03] MEDS ORDERED: KCL PO (16:27)
[2017-05-03] MEDS ORDERED: FLOMAX0.4 M1 PO (16:27)
[2017-05-03] MEDS ORDERED: METFORMIN PO (16:28)
[2017-05-03] MEDS ORDERED: SPIRIVA RESPIMAT4 G1 NEB (16:28)
[2017-05-03] MEDS ORDERED: PROAIR HFA8.5 GM INH (16:28)
[2017-05-03] MEDS ORDERED: XARELTO20 MG PO (16:28)
[2017-05-03] MEDS ORDERED: ZADITOR5 M1 OU (16:29)
[2017-05-03] MEDS ORDERED: MULTI VITAMIN1 EACH (18:23)
[2017-05-03] MEDS ORDERED: OSTEO BI-FLEX1 EAC1 (18:24)
[2017-05-04 06:22] LABS: BASOPHIL% 0.2 % (0-2.5); DIFF IND NO; EOSINOPHIL# 0.7 X10e3 (0-0.7); EOSINOPHIL% 7.5 % (0.0-7.0); HEMATOCRIT 33.3 % (38.0-50.0); HEMOGLOBIN 11.3 gm/dL (13.0-16.0); LYMPHOCYTE# 0.9 X10e3 (1.0-3.5); LYMPHOCYTE% 10.6 % (17.0-45.0); MEAN CELL VOLUME 89.3 FL (83-96); MEAN CORPUSCULAR HEMOGLOBIN 30.2 PG (28-34); MEAN CORPUSCULAR HGB CONC 33.8 g/dL (30-36); MEAN PLATELET VOLUME 7.2 FL (6.5-11.5); MONOCYTE# 0.9 X10e3 (0-1.0); MONOCYTE% 9.7 % (3.0-12.0); NEUTROPHIL# 6.4 X10e3 (1.5-7.1); PLATELET COUNT 384 X10e3 (140-420); RED BLOOD COUNT 3.73 X10e (3.90-5.60); RED CELL DISTRIBUTION WIDTH 14.4 % (11.0-15.5); WHITE BLOOD COUNT 8.9 X10e3 (4.0-10.5)
[2017-05-04 07:26] LABS: BUN/CREATININE RATIO 14.61; CALCIUM SERUM 8.3 mg/dL (8.4-10.2); CREATININE SERUM 1.3 mg/dL (0.6-1.4); GLOM FILT RATE Estimated 55.7 mL/min (>60); POTASSIUM 4.5 mmol/L (3.5-5.1)
[2017-05-05 06:09] LABS: HEMATOCRIT 33.3 % (38.0-50.0); HEMOGLOBIN 11.2 gm/dL (13.0-16.0); MEAN CELL VOLUME 89.3 FL (83-96); MEAN CORPUSCULAR HEMOGLOBIN 30.2 PG (28-34); MEAN CORPUSCULAR HGB CONC 33.8 g/dL (30-36); MEAN PLATELET VOLUME 7.3 FL (6.5-11.5); RED BLOOD COUNT 3.73 X10e (3.90-5.60); RED CELL DISTRIBUTION WIDTH 14.6 % (11.0-15.5); WHITE BLOOD COUNT 10.5 X10e3 (4.0-10.5)
[2017-05-05 07:08] LABS: ALBUMIN SERUM 2.3 g/dL (3.5-5.0); BILIRUBIN,TOTAL 1.8 mg/dL (0.2-2.0); BUN/CREATININE RATIO 13.84; CALCIUM SERUM 7.9 mg/dL (8.4-10.2); CREATININE SERUM 1.3 mg/dL (0.6-1.4); GLOM FILT RATE Estimated 55.7 mL/min (>60); POTASSIUM 5.3 mmol/L (3.5-5.1); PROTEIN TOTAL SERUM 4.6 g/dL (6.0-8.3)
[2017-05-06 05:19] LABS: HEMATOCRIT 33.6 % (38.0-50.0); HEMOGLOBIN 11.3 gm/dL (13.0-16.0); MEAN CELL VOLUME 89.1 FL (83-96); MEAN CORPUSCULAR HEMOGLOBIN 29.9 PG (28-34); MEAN CORPUSCULAR HGB CONC 33.6 g/dL (30-36); MEAN PLATELET VOLUME 7.3 FL (6.5-11.5); RED BLOOD COUNT 3.78 X10e (3.90-5.60); RED CELL DISTRIBUTION WIDTH 14.5 % (11.0-15.5); WHITE BLOOD COUNT 14.7 X10e3 (4.0-10.5)
[2017-05-06 07:07] LABS: ALBUMIN SERUM 2.4 g/dL (3.5-5.0); BILIRUBIN,TOTAL 1.2 mg/dL (0.2-2.0); CALCIUM SERUM 7.7 mg/dL (8.4-10.2); CREATININE SERUM 1.6 mg/dL (0.6-1.4); POTASSIUM 4.4 mmol/L (3.5-5.1)
[2017-05-07 05:54] LABS: HEMATOCRIT 32.8 % (38.0-50.0); HEMOGLOBIN 10.9 gm/dL (13.0-16.0); MEAN CORPUSCULAR HEMOGLOBIN 29.6 PG (28-34); MEAN CORPUSCULAR HGB CONC 33.3 g/dL (30-36); RED BLOOD COUNT 3.69 X10e (3.90-5.60); RED CELL DISTRIBUTION WIDTH 14.4 % (11.0-15.5); WHITE BLOOD COUNT 14.3 X10e3 (4.0-10.5)
[2017-05-07 07:12] LABS: BUN/CREATININE RATIO 16.25; CALCIUM SERUM 7.9 mg/dL (8.4-10.2); CREATININE SERUM 1.6 mg/dL (0.6-1.4); POTASSIUM 4.8 mmol/L (3.5-5.1)
[2017-05-08 07:40] LABS: HEMATOCRIT 33.5 % (38.0-50.0); MEAN CELL VOLUME 90.4 FL (83-96); MEAN CORPUSCULAR HEMOGLOBIN 29.8 PG (28-34); MEAN CORPUSCULAR HGB CONC 32.9 g/dL (30-36); MEAN PLATELET VOLUME 7.2 FL (6.5-11.5); RED BLOOD COUNT 3.71 X10e (3.90-5.60)
[2017-05-08 08:25] LABS: BUN/CREATININE RATIO 17.85; CALCIUM SERUM 7.9 mg/dL (8.4-10.2); CREATININE SERUM 1.4 mg/dL (0.6-1.4); GLOM FILT RATE Estimated 50.6 mL/min (>60)
[2017-05-08 08:39] LABS: POTASSIUM 5.5 mmol/L (3.5-5.1)
[2017-05-08] MEDS ORDERED: XANAX0.5 MG PO (12:47)
[2017-05-10 06:24] LABS: BUN/CREATININE RATIO 18.46; CALCIUM SERUM 8.4 mg/dL (8.4-10.2); CREATININE SERUM 1.3 mg/dL (0.6-1.4); GLOM FILT RATE Estimated 55.3 mL/min (>60)
[2017-05-10 06:27] LABS: POTASSIUM 5.5 mmol/L (3.5-5.1)
== END 2017-05-10 18:20 | DRG 603 ==
LOC: CED 10:54 → CEDOF 16:50 → CED 17:37 → CEDOF 17:37 → C5B 17:37
PROVIDERS: Emergency Medicine; Family Medicine; Internal Medicine
DX: L03.116 Cellulitis of left lower limb (principal); N17.9 Acute kidney failure, unspecified; J96.10 Chronic respiratory failure, unspecified whether with hypoxia or hypercapnia; I48.91 Unspecified atrial fibrillation; E44.1 Mild protein-calorie malnutrition; Z68.41 Body mass index [BMI] 40.0-44.9, adult; Z79.01 Long term (current) use of anticoagulants; I10 Essential (primary) hypertension; E78.5 Hyperlipidemia, unspecified; I45.10 Unspecified right bundle-branch block; E11.9 Type 2 diabetes mellitus without complications; J44.9 Chronic obstructive pulmonary disease, unspecified; G47.33 Obstructive sleep apnea (adult) (pediatric); I89.0 Lymphedema, not elsewhere classified; Z89.511 Acquired absence of right leg below knee; Z87.891 Personal history of nicotine dependence; N40.0 Benign prostatic hyperplasia without lower urinary tract symptoms; E87.5 Hyperkalemia; E66.9 Obesity, unspecified; F41.9 Anxiety disorder, unspecified
CPT/HCPCS: 36415; 73562; 80048; 80053; 82550; 82553; 82947; 83036; 83880; 84132; 84484; 85025; 85027; 85610; 85730; 87040; 87070; 87205; 93005; 93922; 93971; 94640; 94664; 94760; 96365; 97116; 97162; 97166; 97530; 97535; 99285; G8987-GO; G8988-GO; J1200; J1815; J1940; J2020; J2543; J2930; J3370